=== PATIENT | male | born 1960 | race Caucasian/White ===

== ENCOUNTER 2023-03-10 09:34 | Emergency (ER) | payer MEDICAID ==
[~2023-03-10] VITALS: Ht 167.6 cm; Wt 90.7 kg
[2023-03-10 09:44] VITALS: BP 145/94; PULSE 78; RESP 18; TEMP 97.9; O2SAT 97
[2023-03-10] MEDS ORDERED: LIDOCAINE 4% 1 EA PATCH TP ONE (10:30)
[2023-03-10] MEDS ORDERED: KETOROLAC 30 MG/ML VIAL IM ONE (10:30)
[2023-03-10 11:37] LABS: APPEARANCE,URINE CLEAR (CLEAR); BILIRUBIN,URINE 1+ (NEGATIVE); BLOOD, URINE NEGATIVE (NEGATIVE); COLOR,URINE YELLOW (YELLOW); LEUKOCYTE ESTERASE ,URINE NEGATIVE (NEGATIVE); NITRITE, URINE NEGATIVE (NEGATIVE); PROTEIN,URINE NEGATIVE (NEGATIVE); UGLUCOSE NEGATIVE (NEGATIVE); UROBILINOGEN,URINE 0.2 EU/dL (0.2 - 1)
[2023-03-10 11:44] LABS: ICTOTEST NEGATIVE (NEGATIVE)
[2023-03-10] MEDS ORDERED: LID5T TP (12:38)
[2023-03-10] MEDS ORDERED: NAPR-54 PO (12:38)
[2023-03-10 12:47] VITALS: BP 141/84; PULSE 84; RESP 16; TEMP 37.00296; O2SAT 99
== END 2023-03-10 12:45 | disposition home or self-care (01) ==
LOC: MED 09:34
DX: S39.012A Strain of muscle, fascia and tendon of lower back, initial encounter (principal); Z79.899 Other long term (current) drug therapy; Z79.1 Long term (current) use of non-steroidal anti-inflammatories (NSAID); X58.XXXA Exposure to other specified factors, initial encounter; Y92.89 Other specified places as the place of occurrence of the external cause; Y93.89 Activity, other specified; Y99.8 Other external cause status
CPT/HCPCS: 81003; 96372; 99283; J1885